=== PATIENT | female | born 1980 | race Caucasian/White ===

== ENCOUNTER 2018-11-28 03:53 | Emergency (ER) | payer OTHER ==
[~2018-11-28] VITALS: Ht 154.9 cm; Wt 61.2 kg
[2018-11-28] MEDS ORDERED: XANAX1 MG PO (04:13)
[2018-11-28] MEDS ORDERED: NORCO 7.5-3251 EACH PO (05:53)
[2018-11-28 06:11] VITALS: BP 119/67
== END 2018-11-28 06:12 | disposition home or self-care (01) ==
LOC: M.ERS 03:53
DX: S00.531A Contusion of lip, initial encounter (principal); S00.83XA Contusion of other part of head, initial encounter; R51 Headache; M54.2 Cervicalgia; M79.602 Pain in left arm; Z90.710 Acquired absence of both cervix and uterus; Z88.1 Allergy status to other antibiotic agents; Y08.89XA Assault by other specified means, initial encounter; Y93.89 Activity, other specified; Y92.89 Other specified places as the place of occurrence of the external cause; Y99.8 Other external cause status